=== PATIENT | female | born 1930 | race Caucasian/White ===

== ENCOUNTER 2018-05-21 19:25 | Inpatient (IN) | payer OTHER, MEDICARE ==
[2018-05-21] MEDS: carBAMazepine 200 MG TAB PO SCH (22:45)
[2018-05-21] MEDS: MEMANTINE HCL 5 MG TAB PO SCH (22:46)
[2018-05-21] MEDS: ACETAMINOPHEN 325 MG TAB PO PRN (22:46)
[2018-05-21] MEDS: POLYETHYLENE GLYCOL 3350 17 GM PKT PO SCH (22:46)
--- NOTE | 2018-05-22 00:48 | GHP ---
DATE OF ADMISSION: 05/21/2018 REASON FOR ADMISSION: Mental status shift. HISTORY: The patient is an 87-year-old female with history of coronary artery disease status post MA , mild dementia, hypertension, and elevated coronary calcium score. She fell and had a closed head i njury approximately 3 weeks ago. She had a subdural as well as subarachnoid bleed at the time. Thes blu were managed conservatively, and she did well. Subsequently, she had been hospitalized a couple ti mes because of behavioral shifts. She was recently discharged from the hospital and came to [place] to visit with family and check with me, who has seen her in the past as her physician. Initially, michelle hurt was in good spirits and was cognitively intact. However, she had lapses in her memory, lapse in he r speech, and would be talking and would completely lose direction in sentence and start in a differe nt direction without provocation. In light of her recent head injury, this was concerning. She was taken to the hospital for further evaluation. When she got to the hospital, she became completely di soriented, could not say who I was, did not recognize me as being her physician, became very agitated , demanding to go home. This lasted about 20-30 minutes and then she settled down and was back to a more normal state. Most of her medicines have been held. She had been on fish oil, aspirin, clopidogrel, atorvastatin, and Niaspan in the past. She has also been on Namenda and Lexapro. PHYSICAL EXAMINATION: VITAL SIGNS: Blood pressure 129/81. Pulse is 95 and regular. Oxygen saturat ion 93% on room air. Temperature is 97.6. HEENT: Pupils equal, reactive to light. GENERAL: She i s not oriented. She thinks she is in [place]. She is alert, however. She is somewhat argumentative and makes clear and sound arguments despite her lack of orientation. HEART: Regular rate and rhythm . LUNGS: Clear. ABDOMEN: Nontender. EXTREMITIES: She has no peripheral edema. Pulses are dimin ished in her feet. IMPRESSION: Rapid shifts in mental status in a patient with coronary artery disease and a recent vick sed head injury. I am concerned about the possibility of a complex partial seizure versus cardiac ar rhythmia. Will admit. Will monitor. Will empirically place her on carbamazepine. We will follow h er symptoms closely. She has recently had a bladder infection. We will recheck urinalysis, as well as continue her Keflex, which she has been on as outpatient. /[id number]/MODL
[2018-05-22 06:10] LABS: PLATELET COUNT 221 10^3/uL (150-400)
[2018-05-22] MEDS: CEPHALEXIN 500 MG CAP PO SCH ×3 (06:41→21:58)
[2018-05-22] MEDS: carBAMazepine 200 MG TAB PO SCH ×2 (08:32→21:59)
[2018-05-22] MEDS: MEMANTINE HCL 5 MG TAB PO SCH ×2 (08:32→21:58)
[2018-05-22] MEDS: POLYETHYLENE GLYCOL 3350 17 GM PKT PO SCH (08:33)
[2018-05-22] MEDS: RIVASTIGMINE TARTRATE 1.5 MG CAP PO SCH ×2 (08:33→18:11)
[2018-05-22] MEDS: CHOLECALCIFEROL VIT D3 2,000 UNITS TAB/CAP PO SCH (08:51)
[2018-05-22] MEDS: OMEGA-3 ETHYL EST-LOVAZA 1 GM CAP PO SCH (08:51)
--- NOTE | 2018-05-22 08:56 | SOAPPROG ---
SOAP Progress Note Assessment/Plan: Assessment: Post concussive syndrome. Prior subdural/subarachnoid bleeding. CAD. Generally stable. Plan: Recheck head CT Continue to monitor heart. see response to increased prozac and start of Tegretol. 05/22/18 08:55 Subjective: No complaints. Ate all of her breakfast. She picked up on the conversation that we were having last night regarding travel to the [facility]. Objective: Vital Signs Temp Pulse Resp BP Pulse Ox 97.9 F 67 15 127/71 H 98 05/22/18 07:45 05/22/18 07:45 05/22/18 07:45 05/22/18 07:45 05/22/18 07:45 Laboratory Results 05/22/18 05:30 05/22/18 05:30 05/21/18 05/22/18 05/23/18 05:59 05:59 05:59 Intake Total 120 Balance 120 Lungs clear to asc. COR RRR. Alert and appropriate. Not very well oriented. Spole with her daughter. ICD10 Worksheet Patient Problems: Problems Problem Status Onset CAD (coronary artery disease) Acute Dementia Acute Epidural hemorrhage Acute Subarachnoid bleed Acute Subdural hemorrhage Acute Extended spectrum beta lactamase (ESBL) resistance Acute ~04/14/17
[2018-05-22] MEDS ORDERED: FLUoxetine 20 MG CAP PO SCH (09:00)
--- NOTE | 2018-05-22 10:09 | PDMN ---
Medical Necessity Medical necessity: Pt meets IP criteria as of 05/21/2018 per and MCG MG-C ( Cardiology GRG)and MG-N (Neurology GRG); est los > 2 mn for ongoing tx and management of presumed cardiac arrhythmia vs complex seizure causing acute confusion in a pt with recent head trauma; requiring close monitoring, med management, and further workup.
--- NOTE | 2018-05-22 14:23 | ASMTCMCOM ---
CM Note CM Note Notes: Patient admitted for mental status changes. She is s/p a subdural and subarachnoid hemorrhage 3 weeks ago and has not been doing well living at home with 27/12 supervision. Athough she [place] in [facility] [place], she came to [place] to visit family, and Dr Lewis has assumed her care. He reports that her daughter Ynes is traveling to [place] from [place] tomorrow and will then be taking her to [place] to move into an assisted living facility. He says it is all arranged. Case Management available for any assistance the family may require. Date Signed: 05/22/2018 01:46 PM Electronically Signed By:Elizabeth Griffin RN
[2018-05-22] MEDS: ACETAMINOPHEN 325 MG TAB PO PRN (21:57)
[2018-05-22] MEDS: NIACIN ER 500 MG TAB.ER PO SCH (21:58)
[2018-05-23] MEDS: CEPHALEXIN 500 MG CAP PO SCH ×3 (05:47→21:28)
[2018-05-23] MEDS: OMEGA-3 ETHYL EST-LOVAZA 1 GM CAP PO SCH (08:06)
[2018-05-23] MEDS: MEMANTINE HCL 5 MG TAB PO SCH ×3 (08:07→22:50)
[2018-05-23] MEDS: CHOLECALCIFEROL VIT D3 2,000 UNITS TAB/CAP PO SCH (08:07)
[2018-05-23] MEDS: carBAMazepine 200 MG TAB PO SCH ×4 (08:07→22:50)
[2018-05-23] MEDS: RIVASTIGMINE TARTRATE 1.5 MG CAP PO SCH ×2 (08:07→17:53)
[2018-05-23] MEDS: POLYETHYLENE GLYCOL 3350 17 GM PKT PO SCH (08:07)
--- NOTE | 2018-05-23 08:54 | SOAPPROG ---
SOAP Progress Note Assessment/Plan: Assessment: 87 yo female with postconcussive syndrome, possible seizure activity, recent subdural/subarachnoid hemorrhage. H/o CAD which is generally stable. Plan: Increased confusion, agitation: monitor on tegretol, increased prozac. Dr. Tadeo to compare prior CT to current one. H/o CAD: stable on tele over night, no sx of ACS, stable Dispo: dtr to arrive tomorrow, possible home tomorrow 05/23/18 08:51 Subjective: Gladys is resting comfortably in the chair this morning. Says she slept well, is in no acute pain. Denies EARL, SOB, CP. Objective: Vital Signs Temp Pulse Resp BP Pulse Ox 36.8 C 67 17 133/71 H 92 05/23/18 07:57 05/23/18 07:57 05/23/18 07:57 05/23/18 07:57 05/23/18 07:57 Laboratory Results 05/22/18 05:30 05/22/18 05:30 05/22/18 05/23/18 05/24/18 05:59 05:59 05:59 Intake Total 120 960 Output Total 300 650 Balance 120 660 -650 Gen- alert, calm, appropriate Head- normocephalic, atraumatic Resp- LCTAB, no wheezing, rhonchi, rales CV- S1S2, RRR, no murmurs, rubs, gallops Abd- SNT, nondistended, + BS Extremities- no peripheral edema Neuro- pleasantly confused ICD10 Worksheet Patient Problems: Problems Problem Status Onset CAD (coronary artery disease) Acute Dementia Acute Epidural hemorrhage Acute Subarachnoid bleed Acute Subdural hemorrhage Acute Extended spectrum beta lactamase (ESBL) resistance Acute ~04/14/17
[2018-05-23] MEDS: FLUoxetine 10 MG CAP PO SCH (10:34)
[2018-05-23] MEDS ORDERED: ONDANSETRON DISINTEGRATING 4 MG TAB PO PRN (15:29)
[2018-05-23] MEDS: NIACIN ER 500 MG TAB.ER PO SCH ×2 (21:28→22:50)
[2018-05-23] MEDS ORDERED: ONDANSETRON 4 MG/2 ML VIAL IVP PRN (21:49)
[2018-05-23] MEDS ORDERED: levETIRAcetam 1000MG/NACL 100 ML IV ONE (21:53)
--- NOTE | 2018-05-23 21:56 | SOAPPROG ---
SOAP Progress Note Assessment/Plan: Assessment: Post concussive syndrome. Prior subdural/subarachnoid bleeding. CAD. Suspect complex partial seiques Plan: Give a dose of Keppra IV now. Consider continuing PO in the AM if the nausea has resolved. Will also give fluids now. 05/22/18 08:55 05/23/18 21:55 Subjective: Had nausea today. Has not kept down meds. Objective: Vital Signs Temp Pulse Resp BP Pulse Ox 98.1 F 71 12 114/62 94 05/23/18 19:42 05/23/18 19:42 05/23/18 19:42 05/23/18 19:42 05/23/18 19:42 Laboratory Results 05/22/18 05:30 05/22/18 05:30 05/22/18 05/23/18 05/24/18 05:59 05:59 05:59 Intake Total 776 545 6823 Output Total 300 800 Balance 120 660 210 Having behavioral problems again. I am very concerned that she is suffering from complex partial seizures and has not kept down the tegretol. ICD10 Worksheet Patient Problems: Problems Problem Status Onset CAD (coronary artery disease) Acute Dementia Acute Epidural hemorrhage Acute Subarachnoid bleed Acute Subdural hemorrhage Acute Extended spectrum beta lactamase (ESBL) resistance Acute ~04/14/17
[2018-05-23] MEDS: D5W 1/2 NS W/ 20 KCl/L 1,000 ML IV SCH (22:19)
[2018-05-24] MEDS: CEPHALEXIN 500 MG CAP PO SCH ×3 (01:12→15:12)
[2018-05-24 04:39] LABS: PLATELET COUNT 223 10^3/uL (150-400)
[2018-05-24] MEDS ORDERED: levETIRAcetam 500MG/NACL 100 ML IV ONE (09:03)
[2018-05-24] MEDS: carBAMazepine 200 MG TAB PO SCH (09:40)
[2018-05-24] MEDS: FLUoxetine 10 MG CAP PO SCH (10:43)
[2018-05-24] MEDS: OMEGA-3 ETHYL EST-LOVAZA 1 GM CAP PO SCH (10:43)
[2018-05-24] MEDS: CHOLECALCIFEROL VIT D3 2,000 UNITS TAB/CAP PO SCH (10:43)
[2018-05-24] MEDS: MEMANTINE HCL 5 MG TAB PO SCH (10:43)
[2018-05-24] MEDS: POLYETHYLENE GLYCOL 3350 17 GM PKT PO SCH (10:48)
[2018-05-24] MEDS: RIVASTIGMINE TARTRATE 1.5 MG CAP PO SCH (10:50)
[2018-05-24 11:49] VITALS: BP 152/63
[2018-05-24] MEDS: D5W 1/2 NS W/ 20 KCl/L 1,000 ML IV SCH (12:29)
[2018-05-24] MEDS ORDERED: levETIRAcetam 500 MG TAB PO SCH (21:00)
[2018-05-24] MEDS ORDERED: carBAMazepine 200 MG TAB PO SCH (21:00)
--- NOTE | 2018-05-26 08:41 | GDS ---
ADMISSION DIAGNOSES: Rapid change in mental status, possible arrhythmia, possible partial complex se izure disorder. 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 PROCEDURES: Observation, cardiac monitoring, placement on Tegretol, and subsequently Keppra. COMPLICATIONS: None. HOSPITAL COURSE: The patient is admitted with periods of profound confusion and agitation. Her hear t was monitored. She had no significant arrhythmia during the course of her hospitalization. Becaus e of her previous injury and some persistent subdural blood, there was concern about the possibility of her rapid behavioral changes to be related to a partial complex seizure disorder. She was initial ly placed on Tegretol first, but did not tolerate more than 200 twice a day and was still having some symptoms. At that point, Keppra 500 mg twice a day was added. She was somewhat lethargic on the co mbination, but would wake up and have a more cogent conversation that she was having prior to startin g these medications. Medications were continued and she is being discharged to the care of her anne marie fonseca. DISCHARGE MEDICATIONS: Acetaminophen p.r.n., carbamazepine 20 mg b.i.d., cholecalciferol 2000 units daily, Prozac 30 mg daily, Keppra 500 mg b.i.d., memantine 10 mg b.i.d., niacin extended release 500 mg h.s., omega-3 ethyl esters 2 g daily, polyethylene glycol 17 g daily. FOLLOWUP: She is to follow up in the office in 1 day. /[id number]/MODL
== END 2018-05-24 15:30 | disposition home or self-care (01) | DRG 101 ==
LOC: F2W 20:18 → OBSVTOIN 20:58
PROVIDERS: ADMIT Internal Medicine; ATTEND Internal Medicine
DX: G40.209 Localization-related (focal) (partial) symptomatic epilepsy and epileptic syndromes with complex partial seizures, not intractable, without status epilepticus (principal); Z87.820 Personal history of traumatic brain injury; I25.10 Atherosclerotic heart disease of native coronary artery without angina pectoris; F03.90 Unspecified dementia, unspecified severity, without behavioral disturbance, psychotic disturbance, mood disturbance, and anxiety; I10 Essential (primary) hypertension; I25.2 Old myocardial infarction
CPT/HCPCS: 82607-90; 84402-90; 92523-GN; 97116-GP; 97162-GP; 97166-GO; 97530-GP; 97535-GO; G8978-GP-CJ; G8979-GP-CI; G8987-GO-CK; G8988-GO-CI; G9168-GN-CL; G9169-GN-CL; G9170-GN-CL; J1953; J2405